=== PATIENT | female | born 1940 | race Caucasian/White ===

== ENCOUNTER 2025-08-07 21:09 | Emergency (ER) | payer MEDICARE, MEDICAID ==
[~2025-08-07] VITALS: Ht 167.6 cm; Wt 48.8 kg
[2025-08-07] MEDS ORDERED: THIA100T92 PO (22:50)
[2025-08-07] MEDS ORDERED: THYR30TA24 PO (22:50)
[2025-08-07] MEDS ORDERED: MELA5TAB40 PO (22:50)
[2025-08-07] MEDS ORDERED: TRAZ-257 PO (22:50)
[2025-08-07] MEDS ORDERED: SERT-158 PO (22:50)
[2025-08-08 00:26] LABS: PLATELET COUNT (AUTO) 252 K/uL (150-450); RED BLOOD CELL COUNT(AUTO) 4.65 MIL/uL (4.00-5.20); RED CELL DISTRIBUTION WIDTH 13.4 % (11.5-14.5); WHITE BLOOD COUNT (AUTO) 11.5 K/uL (4.5-11.0)
[2025-08-08 00:28] LABS: CALCIUM, TOTAL 8.9 mg/dL (8.8-10.5); CREATININE 0.81 mg/dL (0.60-1.30); GLOMERULAR FILTR. RATE CALC > 60 mL/min (>60); GLUCOSE,RANDOM 108 mg/dL (70-110); SODIUM SERUM 137 mmol/L (136-145); UREA NITROGEN, BLOOD 24 mg/dL (7-18)
[2025-08-08 00:37] LABS: TROPONIN I-HIGH SENSITIVITY 16 ng/L (<51)
[2025-08-08 01:29] VITALS: TEMP 98.9
[2025-08-08 02:32] VITALS: BP 159/66; PULSE 80; RESP 14; O2SAT 95
== END 2025-08-08 03:18 | disposition short-term general hospital (02) ==
LOC: EMS 21:09 → EDH 23:49 → UNDOADMIN 23:49 → CANBEDREQ 08-08 00:26
DX: S72.001A Fracture of unspecified part of neck of right femur, initial encounter for closed fracture (principal); F32.A Depression, unspecified; F03.90 Unspecified dementia, unspecified severity, without behavioral disturbance, psychotic disturbance, mood disturbance, and anxiety; E03.9 Hypothyroidism, unspecified; Z79.899 Other long term (current) drug therapy; W19.XXXA Unspecified fall, initial encounter; Y93.89 Activity, other specified; Y92.89 Other specified places as the place of occurrence of the external cause; Y99.8 Other external cause status
CPT/HCPCS: 73502; 80048; 84484; 85025; 93005; 99285